=== PATIENT | female | born 1980 | race Caucasian/White ===

== ENCOUNTER 2017-02-17 10:25 | Emergency (ER) | payer BC, MEDICAID ==
--- NOTE | 2017-02-17 10:45 | ER Document Report ---
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 She has to lean forward while bent forward at the waist to load salad bar. They have been having her do it for 3-1/2-4 hours each shift for a week. There is no radiculopathy but the pain was so bad today she was told to be evaluated. Unable to see Dr. Amin because they asked her to pay $120 at the hotel front desk agent. No radiculopathy or saddle anesthesia. No fever. Associated Symptoms: None Exacerbated by: Denies Relieved by: Denies Similar symptoms previously: No Recently seen / treated by doctor: No - ROS ROS below otherwise negative: Yes Systems Reviewed and Negative: Yes All other systems reviewed and negative - CARDIOVASCULAR Cardiovascular: DENIES: Chest pain - REPRODUCTIVE Reproductive: DENIES: : - DERM Skin Color: Normal Past Medical History - General Information source: Patient - Social History Smoking Status: Unknown if Ever Smoked Frequency of alcohol use: None Drug Abuse: None Lives with: Family Family History: Hypertension, Other - mother had a heart attack at age 38 Patient has suicidal ideation: No Patient has homicidal ideation: No Pulmonary Medical History: Reports: Hx Asthma Neurological Medical History: Reports: Hx Migraine Endocrine Medical History: Reports: Hx Hypothyroidism Renal/ Medical History: Denies: Hx Peritoneal Dialysis Psychiatric Medical History: Reports: Hx Anxiety, Hx Bipolar Disorder, Hx Depression Past Surgical History: Reports: Hx Cholecystectomy, Hx Hysterectomy, Hx Orthopedic Surgery - Spinal fusion L5-S1 - Immunizations Hx Diphtheria, Pertussis, Tetanus Vaccination: Yes Vertical Provider Document - CONSTITUTIONAL Agree With Documented VS: Yes Exam Limitations: No Limitations - INFECTION CONTROL TRAVEL OUTSIDE OF THE [place] IN LAST 30 DAYS: No - HEENT HEENT: Normocephalic - NECK Neck: Supple - RESPIRATORY Respiratory: Breath Sounds Normal, No Respiratory Distress O2 Sat by Pulse Oximetry: 100 - CARDIOVASCULAR Cardiovascular: Regular Rate, Regular Rhythm - GI/ABDOMEN Gastrointestinal: Abdomen Soft, Abdomen Non-Tender - MUSCULOSKELETAL/EXTREMETIES Musculoskeletal/Extremeties: MAEW, FROM, Tender - midline T12 L1 area - NEURO Level of Consciousness: Awake, Alert, Appropriate Motor/Sensory: No Motor Deficit, No Sensory Deficit Deep Tendon Reflexes: 2+ - Bilateral ankle and patellar - DERM Integumentary: Warm, Dry, No Rash Course - Vital Signs Vital signs: Temp Pulse Resp BP Pulse Ox 98.5 F 64 18 139/79 H 100 02/17/17 10:28 02/17/17 10:28 02/17/17 10:28 02/17/17 10:28 02/17/17 10:28 Discharge - Discharge Clinical Impression: Low back strain Qualifiers: Encounter type: initial encounter Qualified Code(s): S39.012A - Strain of muscle, fascia and tendon of lower back, initial encounter Condition: Good Disposition: HOME, SELF-CARE Instructions: Acetaminophen, Use of Fncx-Tqv-Sizcdqw Ibuprofen ([facility]), Warm Packs ([facility]), Low Back Pain ([facility]) Additional Instructions: warm compress note for work to restrict that duty at [employer] see your doctor for follow up to er if any concerns Please complete the patient satisfaction survey if you get one, and return it.. If you do not receive a survey, then you can go to the [facility] website, [email or web address] and place your comments about your very good care. Thank you very much. It was a pleasure being your medical provider today. Forms: Restricted Release, Return to Work Referrals: QUINTIN AMIN MD [Primary Care Provider] - Follow up as needed
[2017-02-17 11:22] VITALS: BP 126/73
== END 2017-02-17 11:22 | disposition home or self-care (01) ==
LOC: ER 10:25
DX: S39.012A Strain of muscle, fascia and tendon of lower back, initial encounter (principal); M54.5 Low back pain; W19.XXXA Unspecified fall, initial encounter
CPT/HCPCS: 99283

== ENCOUNTER 2017-08-03 15:08 | Emergency (ER) | payer OTHER ==
[2017-08-03] MEDS ORDERED: DEXAMETHASONE SOD PHOS INJ 10 MG/1 ML VIAL IM ONE (16:26)
[2017-08-03] MEDS ORDERED: KETOROLAC TROMETHAMINE 60 MG/2 ML SDV IM ONE (16:26)
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
[2017-08-03 17:11] LABS: APPEARANCE,URINE SLIGHTLY-CLOUDY; BILIRUBIN,URINE NEGATIVE (NEGATIVE); COLOR,URINE YELLOW; GLUCOSE, URINE NEGATIVE (NEGATIVE); KETONES,URINE NEGATIVE (NEGATIVE); LEUKOCYTE ESTERASE,URINE NEGATIVE (NEGATIVE); NITRITE,URINE NEGATIVE (NEGATIVE); PROTEIN,URINE NEGATIVE (NEGATIVE); URINE SPECIFIC GRAVITY 1.006; UROBILINOGEN,URINE NEGATIVE mg/dL (<2.0)
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
[2017-08-03 18:53] VITALS: BP 124/73
== END 2017-08-03 18:42 | disposition home or self-care (01) ==
LOC: ER 15:08
DX: S16.1XXA Strain of muscle, fascia and tendon at neck level, initial encounter (principal); M54.5 Low back pain; M54.6 Pain in thoracic spine; I10 Essential (primary) hypertension; V89.2XXA Person injured in unspecified motor-vehicle accident, traffic, initial encounter; Z91.040 Latex allergy status; Z91.013 Allergy to seafood
CPT/HCPCS: 99284; 96372; 81025; 81001; 72110; 72070; 72125; J1885; J1100

== ENCOUNTER 2017-08-06 12:52 | Emergency (ER) | payer OTHER, BC ==
[2017-08-06] MEDS ORDERED: OXYCODONE-ACETAMINOPHEN 5-325 MG TABLET PO ONE (14:59)
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
[2017-08-06 16:28] LABS: FREE T3 3.4 pg/mL (2.77-5.27); FREE T4 (FREE THYROXINE) 0.69 ng/dL (0.78-2.19)
[2017-08-06 16:41] LABS: THYROID STIMULATING HORMONE 24.1 uIU/mL (0.47-4.68)
[2017-08-06 17:58] VITALS: BP 116/52
== END 2017-08-06 17:25 | disposition home or self-care (01) ==
LOC: ER 12:52
DX: R51 Headache (principal); M54.9 Dorsalgia, unspecified; M54.2 Cervicalgia; V49.40XA Driver injured in collision with unspecified motor vehicles in traffic accident, initial encounter; E03.9 Hypothyroidism, unspecified; J45.909 Unspecified asthma, uncomplicated; Z98.1 Arthrodesis status
CPT/HCPCS: 36415; 70450; 84439; 84443; 84481; 99284

== ENCOUNTER 2017-10-04 22:43 | Emergency (ER) | payer BC, OTHER ==
[2017-10-04 23:10] VITALS: BP 133/80
--- NOTE | 2017-10-04 23:58 | RADIOLOGY REPORT (SQ) ---
EXAM DESCRIPTION: WRIST RIGHT 3 VIEWS COMPLETED DATE/TIME: 10/04/2017 11:49 pm REASON FOR STUDY: fall COMPARISON: Right hand x-ray 05/14/2012. NUMBER OF VIEWS: Three views. TECHNIQUE: AP, lateral, and oblique radiographic images acquired of the right wrist. LIMITATIONS: None. FINDINGS: MINERALIZATION: Normal. BONES: No acute fracture or dislocation. Normal alignment. SOFT TISSUES: No soft tissue swelling. No radiopaque foreign body. IMPRESSION: No radiographic evidence of acute injury. TECHNICAL DOCUMENTATION: JOB ID: [id number] OH-64 2010 [employer]- All Rights Reserved Reading location - IP/workstation name: [email or web address]
--- NOTE | 2017-10-05 00:10 | ER Document Report ---
HPI - HPI Patient complains to provider of: right wrist injury Pain Level: 3 Context: Patient is a 37-year-old female who comes emergency department for chief complaint of injury to her right wrist. She states that the injury occurred yesterday evening, she states she tripped and fell forward, she cannot part of her weight on her right hand/wrist. She denies any other areas of injury. She states that she felt okay yesterday but today the wrist became much worse and now is very painful with movement, causing her to come and get evaluated. Patient has had a hysterectomy. - CONSTITUTIONAL Constitutional: DENIES: Fever, Chills - EENT EENT: DENIES: Sore Throat, Ear Pain, Eye problems - NEURO Neurology: DENIES: Headache, Weakness, Vision blurred, Dizzinesss / Vertigo - CARDIOVASCULAR Cardiovascular: DENIES: Chest pain - RESPIRATORY Respiratory: DENIES: Trouble Breathing, Coughing - GASTROINTESTINAL Gastrointestinal: DENIES: Abdominal Pain, Black / Bloody Stools - URINARY Urinary: DENIES: Dysuria, Urgency, Frequency - REPRODUCTIVE Reproductive: DENIES: : - MUSCULOSKELETAL Musculoskeletal: REPORTS: Extremity pain - R wrist Past Medical History - General Information source: Patient - Social History Smoking Status: Never Smoker Frequency of alcohol use: None Drug Abuse: None Lives with: Family Family History: Arthritis, CAD, Hyperlipidemia, Hypertension, Other - mother had a heart attack at age 38. denies: COPD, CVA, DM, Malignancy, Thyroid Disfunction Patient has suicidal ideation: No Patient has homicidal ideation: No Pulmonary Medical History: Reports: Hx Asthma Neurological Medical History: Reports: Hx Migraine Endocrine Medical History: Reports: Hx Hypothyroidism Renal/ Medical History: Denies: Hx Peritoneal Dialysis Musculoskeltal Medical History: Reports Hx Musculoskeletal Deformity, Reports Hx Musculoskeletal Trauma Psychiatric Medical History: Reports: Hx Anxiety, Hx Bipolar Disorder, Hx Depression Past Surgical History: Reports: Hx Cholecystectomy, Hx Hysterectomy, Hx Orthopedic Surgery - Spinal fusion L5-S1 - Immunizations Immunizations up to date: Yes Hx Diphtheria, Pertussis, Tetanus Vaccination: Yes Vertical Provider Document - CONSTITUTIONAL General Appearance: WD/WN, No Apparent Distress - INFECTION CONTROL TRAVEL OUTSIDE OF THE [place] IN LAST 30 DAYS: No - HEENT HEENT: Atraumatic, Normocephalic - NECK Neck: Normal Inspection - RESPIRATORY Respiratory: Breath Sounds Normal, No Respiratory Distress O2 Sat by Pulse Oximetry: 99 - CARDIOVASCULAR Cardiovascular: Regular Rate, Regular Rhythm - GI/ABDOMEN Gastrointestinal: Abdomen Soft, Abdomen Non-Tender - BACK Back: Normal Inspection - MUSCULOSKELETAL/EXTREMETIES Musculoskeletal/Extremeties: Tender - There is tenderness over the right wrist, mainly over the ulnar aspect, appears to be minimal soft tissue swelling, range of motion is painful but intact, hand exam is normal, no snuffbox tenderness. Normal forearm, elbow, shoulder exam. Normal upper extremity exam otherwise. Course - Re-evaluation Re-evalutation: Exam is consistent with sprain. No snuffbox tenderness or suggestion of scaphoid fracture. X-rays normal. No evidence of compartment syndrome. Patient well-appearing. Discussed with patient, placed in a premade cockup splint for the wrist, discussed treatment, provided with work release, discussed follow-up and return precautions. Patient states satisfaction and agreement. - Vital Signs Vital signs: Temp Pulse Resp BP Pulse Ox 98.6 F 78 20 133/80 H 99 10/04/17 23:08 10/04/17 23:08 10/04/17 23:08 10/04/17 23:08 10/04/17 23:08 Procedures - Immobilization Right wrist Pre-Proc Neuro Vasc Exam: Normal Immobilizer type: Cock-up Performed by: PCT Post-Proc Neuro Vasc Exam: Normal Alignment checked and good: Yes Discharge - Discharge Clinical Impression: Right wrist injury Qualifiers: Encounter type: initial encounter Qualified Code(s): S69.91XA - Unspecified injury of right wrist, hand and finger(s), initial encounter Condition: Stable Disposition: HOME, SELF-CARE Additional Instructions: Examination is consistent with soft tissue swelling and sprain of the wrist, however no fracture is seen. Recommendation is to wear the splint, apply ice to the wrist 3-4 times a day for 10-15 minutes, take anti-inflammatory, and rest the wrist. Symptoms should resolve with time, most likely will need to wear the splint for several days. Follow-up with primary care for additional evaluation and management. Return to the emergency department for any concerning or worsening symptoms including severe pain or swelling. Prescriptions: Naproxen 500 mg PO BID #20 tablet Forms: Return to Work
== END 2017-10-05 00:24 | disposition home or self-care (01) ==
LOC: ER 22:43
DX: S69.91XA Unspecified injury of right wrist, hand and finger(s), initial encounter (principal); W01.0XXA Fall on same level from slipping, tripping and stumbling without subsequent striking against object, initial encounter; E03.9 Hypothyroidism, unspecified; Z90.49 Acquired absence of other specified parts of digestive tract; Z90.710 Acquired absence of both cervix and uterus; Z98.1 Arthrodesis status
CPT/HCPCS: 99283; 73110; L3908

== ENCOUNTER 2018-03-10 06:14 | Day surgery (SDC) | payer BC ==
[~2018-03-10 06:14] MED LIST: LACTATED RINGERS 1000 ML IV PRN; LIDOCAINE 0.5% INJ-PF (5 MG/ML) 50 ML SDV SUBCUT PRN
[2018-03-10] MEDS ORDERED: MIDAZOLAM 2 MG/2 ML INJ ONE (07:11)
[2018-03-10] MEDS ORDERED: PROPOFOL INJ 200 MG/20 ML VIAL IV ONE (07:12)
[2018-03-10] MEDS ORDERED: FENTANYL CITRATE INJ/PF 100 MCG/2 ML AMPUL ONE (07:12)
[2018-03-10] MEDS ORDERED: BUPIVACAINE HCL 0.5%/EPI 1:200000 INJ 1.8 ML CARTRIDGE ONE (07:14)
[2018-03-10] MEDS ORDERED: BUPIVACAINE HCL 0.5%-EPI 1:200000 INJ/PF 30 ML VIAL ONE (07:24)
[2018-03-10] MEDS ORDERED: PROMETHAZINE HCL INJ 25 MG/1 ML VIAL IV PRN ×2 (07:54)
[2018-03-10] MEDS ORDERED: MEPERIDINE HCL/PF INJ 25 MG/1 ML DISP.SYRIN IV PRN (07:54)
[2018-03-10] MEDS ORDERED: OXYCODONE-ACETAMINOPHEN 5-325 MG TABLET PO PRN ×3 (07:54→08:36)
[2018-03-10] MEDS ORDERED: DIPHENHYDRAMINE HCL 50 MG/ML VIAL IV PRN (07:54)
[2018-03-10] MEDS ORDERED: FENTANYL CITRATE INJ/PF 100 MCG/2 ML AMPUL IV PRN ×3 (07:54)
[2018-03-10] MEDS: PROMETHAZINE HCL INJ 25 MG/1 ML VIAL ONE ×2 (08:28→09:19)
[2018-03-10] MEDS ORDERED: ONDANSETRON HCL INJ/PF 4 MG/2 ML SDV IV PRN (08:37)
[2018-03-10] MEDS ORDERED: SCOPOLAMINE HYDROBROMIDE 1.5 MG PATCH.TD72 ONE (08:56)
[2018-03-10] MEDS ORDERED: ONDANSETRON 4 MG TAB.RAPDIS PO PRN (09:00)
[2018-03-10 11:40] VITALS: BP 144/88
[2018-03-10] MEDS ORDERED: DEXAMETHASONE SOD PHOSPHATE INJ 4 MG/1 ML VIAL ONE (20:38)
[2018-03-10] MEDS ORDERED: SUCCINYLCHOLINE CHLORIDE INJ 200 MG/10 ML VIAL ONE (20:38)
[2018-03-10] MEDS ORDERED: ONDANSETRON HCL INJ/PF 4 MG/2 ML SDV ONE (20:38)
--- NOTE | 2018-03-10 22:26 | OPERATIVE REPORT E ---
Operative Report NAME: PATI DOS SANTOS : 1980 AGE: 38Y DATE OF SURGERY: 03/10/2018 ROOM: PREOPERATIVE DIAGNOSIS: CHRONIC TONSILLITIS. POSTOPERATIVE DIAGNOSIS: CHRONIC TONSILLITIS. OPERATION: Bilateral tonsillectomy, patient age greater than 12. SURGEON: GWEN ARMENDARIZ D.O. ANESTHESIA: General endotracheal tube. ANESTHESIA STAFF: Aide PETE. ESTIMATED BLOOD LOSS: 5 mL. FLUIDS: 850 mL. COMPLICATIONS: None. DRAINS: None. SPONGE COUNT: Verified. MATERIALS FORWARDED SPECIMEN: Left and right tonsillar tissue. FINDINGS: 1. The tonsils were 1 to 2+ in size, were endophytic in nature, were cryptic in appearance, and were with tonsillar debris present bilateral. 2. The soft palatal tissues were significantly redundant in nature and the uvula was otherwise unremarkable in appearance. INDICATIONS: This is a 38-year-old white female patient who was seen and evaluated in the [facility] office. 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 The patient had considered undergoing tonsillectomy surgery in the past to move beyond her chronic tonsil problems. After extensive discussion with the patient, recommendation and plan was to proceed with a tonsillectomy. The procedure and all of its risks and complications were all discussed in detail with the patient. She voiced an understanding of the described surgical plan, agreed to proceed, and consent was obtained. PROCEDURE: The patient was taken to the main operating room and placed on the operating room table in the supine position. Appropriate monitors were placed. Using mask and IV access, general anesthesia was induced. The patient was next transorally intubated without difficulty. The patient was rotated 90 degrees and positioned for tonsil surgery. The patient's lips, teeth, tongue and inside of the mouth were inspected and noted to be without defects. There was a mouth gag inserted. It was opened, and the patient was placed into suspension. There was a soft catheter placed through the patient's nose that was used to suspend the soft palate. Findings are as noted above. At this point, the plasma J-hook device was used to dissect and remove tonsillar tissue on each side. This device was also used to provide adequate hemostasis. Saline irritation was performed and suctioned. There was adequate hemostasis noted. The soft catheter was next released and removed from the patient's nose. The mouth gag was removed from the patient's mouth without difficulty. There was no damage to the lips, teeth, tongue, gums, or inside of the mouth. The patient was then returned to the anesthesia staff and was allowed to emerge from general anesthesia. The patient was extubated in the main operating room and was then transported to the post-anesthesia recovery unit in stable condition. There were no complications. DICTATING PHYSICIAN: GWEN ARMENDARIZ D.O. [id number] PHY#: [id number] ID: [id number] JOB#: [id number] ACCT: [id number] cc:GWEN ARMENDARIZ D.O. > MTDD
== END 2018-03-10 11:35 | disposition home or self-care (01) ==
LOC: OROUT 06:14
PROVIDERS: ATTEND Otolaryngology
DX: J35.01 Chronic tonsillitis (principal); B35.9 Dermatophytosis, unspecified; J45.909 Unspecified asthma, uncomplicated; D64.9 Anemia, unspecified; K21.9 Gastro-esophageal reflux disease without esophagitis; E03.9 Hypothyroidism, unspecified; Z79.899 Other long term (current) drug therapy; Z91.040 Latex allergy status
CPT/HCPCS: 88304 ×2; 42826; J2250; J3490; J1100; J3010; J2550; J0330; J2405; J2704; 170

== ENCOUNTER 2018-09-15 19:12 | Emergency (ER) | payer SELFPAY ==
[2018-09-15] MEDS ORDERED: ASPIRIN 81 MG TABLET, CHEWABLE PO ONE (19:35)
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
[2018-09-15] MEDS ORDERED: PREDNISONE 20 MG TABLET PO ONE (22:14)
[2018-09-15] MEDS ORDERED: IPRATROPIUM/ALBUTEROL 0.5-2.5 MG/3 ML AMPUL NEB ONE (22:15)
--- NOTE | 2018-09-15 22:17 | ER Document Report ---
ED Medical Screen (RME) - General Chief Complaint: Chest Tightness Stated Complaint: SHORTNESS OF BREATH Time Seen by Provider: 09/15/18 22:09 Primary Care Provider: QUINTIN AMIN MD [Primary Care Provider] - Follow up as needed Notes: 38-year-old female with history of asthma in the past is here with cough, chest tightness, wheezing. No fevers or chills. No flu symptoms. Cough is nonproductive. I have treated and performed a rapid initial assessment of this patient. A comprehensive ED assessment and evaluation of the patient, analysis of test results and completion of medical decision making process will be conducted by additional ED providers. PHYSICAL EXAMINATION: GENERAL: Well-appearing, well-nourished and in no acute distress. A&Ox4. Answers questions appropriately. LUNGS: Bilateral rhonchi HEART: Regular rate and rhythm without murmurs, rubs, gallops. ABDOMEN: Soft, nondistended abdomen. No guarding, no rebound. Normal bowel sounds present. No CVA tenderness bilaterally. + mild epigastric tenderness (cannot elicit thorough abd exam w/o table, however). Extremities: No cyanosis, clubbing, or edema b/l. NEUROLOGICAL: Normal speech, normal gait. PSYCH: Normal mood, normal affect. TRAVEL OUTSIDE OF THE [place] IN LAST 30 DAYS: No - Related Data Allergies/Adverse Reactions: adhesive [Adhesive] Allergy (Intermediate, Verified 09/15/18 19:13) Peels skin off erythromycin ethylsuccinate [From E.E.S.] Allergy (Verified 09/15/18 19:13) hydromorphone [From Dilaudid] Allergy (Verified 09/15/18 19:13) VOMITING latex [Latex] Allergy (Verified 09/15/18 19:13) Shellfish * [Shellfish] Allergy (Verified 09/15/18 19:13) theophylline [Theophylline] Allergy (Verified 09/15/18 19:13) Past Medical History - Social History Frequency of alcohol use: None Drug Abuse: None Family history: None - Past Medical History Cardiac Medical History: Denies: Hx Coronary Artery Disease, Hx Heart Attack, Hx Hypertension Pulmonary Medical History: Reports: Hx Asthma - PRN ALBUTEROL Denies: Hx Bronchitis, Hx COPD, Hx Pneumonia Neurological Medical History: Reports: Hx Migraine. Denies: Hx Cerebrovascular Accident, Hx Seizures - ABSENCE SPELLS- NO SEIZURE DISORDER Endocrine Medical History: Reports: Hx Hypothyroidism Renal/ Medical History: Denies: Hx Peritoneal Dialysis Musculoskeltal Medical History: Denies Hx Arthritis, Reports Hx Musculoskeletal Deformity, Reports Hx Musculoskeletal Trauma Psychiatric Medical History: Reports: Hx Anxiety, Hx Bipolar Disorder, Hx Depression Past Surgical History: Reports: Hx Cholecystectomy, Hx Hysterectomy, Hx Orthopedic Surgery - Spinal fusion L5-S1, Hx Tonsillectomy - Immunizations Immunizations up to date: Yes Hx Diphtheria, Pertussis, Tetanus Vaccination: Yes History of Influenza Vaccine for 04/2017 - 09/2017 Season: No Physical Exam - Vital signs Vitals: Temp Pulse Resp BP Pulse Ox 98.2 F 72 17 132/74 H 99 09/15/18 19:58 09/15/18 19:58 09/15/18 19:58 09/15/18 19:58 09/15/18 19:58 Course - Vital Signs Vital signs: Temp Pulse Resp BP Pulse Ox 98.2 F 72 17 132/74 H 99 09/15/18 19:58 09/15/18 19:58 09/15/18 19:58 09/15/18 19:58 09/15/18 19:58 Doctor's Discharge - Discharge Referrals: QUINTIN AMIN MD [Primary Care Provider] - Follow up as needed
--- NOTE | 2018-09-16 02:30 | ER Document Report ---
ED General - General Chief Complaint: Chest Tightness Stated Complaint: SHORTNESS OF BREATH Time Seen by Provider: 09/15/18 22:09 Primary Care Provider: QUINTIN AMIN MD [Primary Care Provider] - Follow up as needed Mode of Arrival: Ambulatory Information source: Patient TRAVEL OUTSIDE OF THE [place] IN LAST 30 DAYS: No - HPI Patient complains to provider of: Shortness of breath, chest tightness, cough Onset: Other - 2 days Onset/Duration: Gradual Quality of pain: Pressure Severity: Mild Associated symptoms: Nonproductive cough. denies: Chest pain, Chills, Diarrhea, Fever, Nausea, Vomiting Exacerbated by: Denies Relieved by: Denies Similar symptoms previously: No Recently seen / treated by doctor: No Notes: 38-year-old female here with shortness of breath, chest tightness, coughing for the past 2 days. No fevers or chills. No blood or productive sputum. No nausea vomiting or diarrhea. - Related Data Allergies/Adverse Reactions: adhesive [Adhesive] Allergy (Intermediate, Verified 09/15/18 19:13) Peels skin off erythromycin ethylsuccinate [From E.E.S.] Allergy (Verified 09/15/18 19:13) hydromorphone [From Dilaudid] Allergy (Verified 09/15/18 19:13) VOMITING latex [Latex] Allergy (Verified 09/15/18 19:13) Shellfish * [Shellfish] Allergy (Verified 09/15/18 19:13) theophylline [Theophylline] Allergy (Verified 09/15/18 19:13) Past Medical History - General Information source: Patient - Social History Smoking Status: Never Smoker Frequency of alcohol use: None Drug Abuse: None Family History: Reviewed & Not Pertinent, Arthritis, CAD, Hyperlipidemia, Hypertension, Other - mother had a heart attack at age 38. denies: COPD, CVA, DM, Malignancy, Thyroid Disfunction Patient has suicidal ideation: No Patient has homicidal ideation: No - Past Medical History Cardiac Medical History: Denies: Hx Coronary Artery Disease, Hx Heart Attack, Hx Hypertension Pulmonary Medical History: Reports: Hx Asthma - PRN ALBUTEROL Denies: Hx Bronchitis, Hx COPD, Hx Pneumonia Neurological Medical History: Reports: Hx Migraine. Denies: Hx Cerebrovascular Accident, Hx Seizures - ABSENCE SPELLS- NO SEIZURE DISORDER Endocrine Medical History: Reports: Hx Hypothyroidism Renal/ Medical History: Denies: Hx Peritoneal Dialysis Musculoskeletal Medical History: Denies Hx Arthritis, Reports Hx Musculoskeletal Deformity, Reports Hx Musculoskeletal Trauma Psychiatric Medical History: Reports: Hx Anxiety, Hx Bipolar Disorder, Hx Depression Past Surgical History: Reports: Hx Cholecystectomy, Hx Hysterectomy, Hx Orthopedic Surgery - Spinal fusion L5-S1, Hx Tonsillectomy - Immunizations Immunizations up to date: Yes Hx Diphtheria, Pertussis, Tetanus Vaccination: Yes Review of Systems - Review of Systems Notes: Constitutional: No fevers. No chills. EENT: No eye redness. No eye pain. No ear pain. No sore throat. Cardiovascular: No chest pain. No palpitations. Respiratory: Dry cough, shortness of breath. Gastrointestinal: No abdominal pain. No nausea, vomiting, or diarrhea. Genitourinary: Atraumatic. No lesions. No pain. No discharge. Musculoskeletal: Atraumatic. No swelling. No deformities. Skin: No rash or lesions. Lymphatic: No swollen lymph nodes. Neurologic: No headache. No syncope. Psychiatric: No suicidal or homicidal ideation. -: Yes ROS unobtainable due to patient's medical condition Physical Exam - Vital signs Vitals: Temp Pulse Resp BP Pulse Ox 98.2 F 72 17 132/74 H 99 09/15/18 19:58 09/15/18 19:58 09/15/18 19:58 09/15/18 19:58 09/15/18 19:58 - Notes Notes: General: Well-developed, well-nourished. In no acute distress. Non-toxic appearing. Cardiac: Well-perfused. Regular rate and rhythm. No murmurs, rubs, or gallops. Pulmonary: Rhonchorous breath sounds Abdominal: Non-distended. Non-rigid. Bowels sounds are present in all four quadrants. No guarding or rebound. HEENT: Head is atraumatic. Conjunctivae not reddened. No tearing. PERRL. EOMI. Orbits atraumatic. No periorbital swelling or erythema. Oropharynx is without erythema, swelling, or exudates. Neck: Supple. No adenopathy. No meningismus. Dermatologic: Warm with good turgor. No rash. Atraumatic. Chest: Atraumatic. No chest wall tenderness to palpation. Musculoskeletal: Moves all extremities well. No range of motion deficits. no muscular or joint tenderness. No paraspinal muscle tenderness. no midline spinal tenderness or step-off. Genitourinary: Examination deferred Neurologic: No gross neurologic deficits. Psychiatric: Normal mood. Course - Re-evaluation Re-evalutation: 09/16/18 02:27 Serial DuoNeb treatments, prednisone, and chest x-ray all negative. Patient's vital signs are stable. Oxygen saturation 99% on room air. We will discharge home diagnosis acute bronchitis. - Vital Signs Vital signs: Temp Pulse Resp BP Pulse Ox 98.2 F 72 17 132/74 H 99 09/15/18 19:58 09/15/18 19:58 09/15/18 19:58 09/15/18 19:58 09/15/18 19:58 Discharge - Discharge Clinical Impression: Acute bronchitis Qualifiers: Bronchitis organism: unspecified organism Qualified Code(s): J20.9 - Acute bronchitis, unspecified Condition: Good Disposition: HOME, SELF-CARE Instructions: Bronchitis ([facility]) Additional Instructions: Be sure to take medications as described for full duration of treatment. Follow-up with your primary care doctor or the clinic in the next 24-48 hours If you develop worsening chest tightness or chest pain, return to the ED. Prescriptions: Albuterol Sulfate [Proair HFA Inhalation Aerosol 8.5 gm MDI] 2 puff IH Q4H PRN #1 mdi PRN Reason: Prednisone [Deltasone 20 mg Tablet] 2 tab PO DAILY 5 Days #10 tablet Referrals: QUINTIN AMIN MD [Primary Care Provider] - Follow up tomorrow
[2018-09-16 04:02] VITALS: BP 133/64
--- NOTE | 2018-09-16 07:36 | EKG REPORT ---
SEVERITY:- BORDERLINE ECG - SINUS RHYTHM BORDERLINE T ABNORMALITIES, ANTERIOR LEADS : Confirmed by: Zion Quinonez MD 16-Sep-2018 07:35:59
== END 2018-09-16 02:55 | disposition home or self-care (01) ==
LOC: ER 19:12
DX: J20.9 Acute bronchitis, unspecified (principal); J45.909 Unspecified asthma, uncomplicated; R07.89 Other chest pain; R06.02 Shortness of breath; R05 Cough; Z91.048 Other nonmedicinal substance allergy status; Z88.1 Allergy status to other antibiotic agents; Z88.5 Allergy status to narcotic agent; Z91.040 Latex allergy status; Z91.013 Allergy to seafood; Z88.8 Allergy status to other drugs, medicaments and biological substances
CPT/HCPCS: 93005; 94640; 99283; 71045; 93010; J7512; J7620